=== PATIENT | male | born 1990 | race Caucasian/White ===

== ENCOUNTER 2024-12-19 09:07 | Emergency (ER) | payer SELFPAY ==
[~2024-12-19] VITALS: Ht 170.2 cm; Wt 108.0 kg
[~2024-12-19 09:07] MED LIST: IBUP-2030 MT; VALA100044 MT
[2024-12-19 09:18] VITALS: O2SAT 96
[2024-12-19 09:54] LABS: BASOPHILS % 1.7 % (0.0-2.0); EOSINOPHILS % 7.2 % (0.0-5.0); HEMATOCRIT. 43.2 % (42.0-52.0); HEMOGLOBIN. 14.5 g/dL (14.0-18.0); LYMPHOCYTES % 32.6 % (20.0-50.0); MEAN CORPUSCULAR HEMOGLOBIN 30.2 pg (28.0-32.0); MEAN CORPUSCULAR HGB CONC 33.6 g/dL (31.0-37.0); MEAN CORPUSCULAR VOLUME 89.9 fL (80.0-94.0); MEAN PLATELET VOLUME 8.3 fl (7.4-10.4); MONOCYTES % 10.5 % (2.0-8.0); PLATELET 250 x1000/uL (130-400); RED BLOOD CELL COUNT 4.81 mill/uL (4.7-6.1); RED CELL DISTRIBUTION WIDTH 14.1 % (11.6-14.6); WHITE BLOOD COUNT 7.7 x1000/uL (4.5-11.0)
[2024-12-19 10:01] LABS: CHLORIDE 102 mEq/L (98-107); POTASSIUM 3.8 mEq/L (3.5-5.1); SODIUM 138 mEq/L (136-145)
[2024-12-19 10:03] LABS: CALCIUM 9.7 mg/dL (8.7-10.4); CARBON DIOXIDE 30 mEq/L (21-32)
[2024-12-19 10:07] LABS: CREATININE 1.2 mg/dL (0.6-1.3); GLUCOSE 94 mg/dL (70-105)
[2024-12-19 10:08] LABS: UREA NITROGEN BLOOD 11 mg/dL (9-23)
[2024-12-19 10:43] LABS: TROPONIN I HIGH SENSITIVITY < 4 ng/L (3.0-53)
[2024-12-19] MEDS ORDERED: AMOX1TAB16 MT (10:46)
[2024-12-19] MEDS ORDERED: P20 MT (10:46)
[2024-12-19 11:36] VITALS: BP 107/65; PULSE 74; RESP 18; TEMP 36.22512; O2SAT 97
== END 2024-12-19 11:37 | disposition home or self-care (01) ==
LOC: ER 10:36
DX: J18.9 Pneumonia, unspecified organism (principal); Z79.624 Long term (current) use of inhibitors of nucleotide synthesis
CPT/HCPCS: 36415; 71045; 80048; 84484; 85025; 93005; 99285